=== PATIENT | male | born 1985 | race Caucasian/White ===

== ENCOUNTER 2016-08-24 04:48 | Emergency (ER) ==
[2016-08-24 05:00] VITALS: BP 138/93
--- NOTE | 2016-08-24 05:10 | PROVIDER DOCUMENTATION ---
HPI-Respiratory General - General Chief Complaint: Cold Symptoms Stated Complaint: COLD SX Time Seen by Provider: 08/24/16 05:06 Source: family Allergies/Adverse Reactions: Patient Allergies Allergy/AdvReac Type Severity Reaction Status Date / Time No Known Allergies Allergy Verified 06/16/16 08:17 Home Medications: Home Medication List Medication Instructions Recorded Confirmed Last Taken Type Buprenorphine HCl/Naloxone HCl 1 each SL BID 05/31/15 06/16/16 06/12/16 History [Suboxone 8 mg/2 mg Sl Film] Quetiapine Fumarate [Seroquel] 300 mg PO QHS 08/26/15 06/16/16 06/12/16 History Fluoxetine HCl [Prozac] 200 mg PO DAILY 10/20/15 06/16/16 06/12/16 History Azithromycin [Zithromax Z-Kayden] 250 mg PO DIRECTED #1 pkg 08/24/16 Unknown Rx Prednisone 20 mg PO BID #10 tablet 08/24/16 Unknown Rx Quetiapine Fumarate [Seroquel] 100 mg PO DAILY #6 tablet 08/24/16 Unknown Rx - History of Present Illness-Resp Quality of Pain: reports: aching Severity in ED: reports: mild Onset/Duration: reports: just prior to arrival Timing: reports: still present Context: reports: recent URI Exposure: reports: enviromental allergen exposure Cough Quality/Degree: reports: no cough Episode Frequency: no prior episodes Current Respiratory Medication Therapy: Initiated see nurses note Modifying Factors: improves with: nothing Associated Symptoms: reports: denies symptoms Similar Symptoms Previously?: Yes Recently seen or treated by another doctor?: Yes Review of Systems - Adult - REVIEW OF SYSTEMS - ADULT Constitutional: reports: no symptoms reported Eyes: reports: no symptoms reported Ears, Nose, Mouth & Throat: reports: no symptoms reported Cardiovascular: reports: no symptoms reported Respiratory: reports: no symptoms reported Gastrointestinal: reports: no symptoms reported Genitourinary: reports: no symptoms reported Musculoskeletal: reports: no symptoms reported Integumentary: reports: no symptoms reported Neurological: reports: no symptoms reported Psychiatric: reports: no symptoms reported Endocrine: reports: no symptoms reported Hematologic/Lymphatic: reports: no symptoms reported Allergic/Immunologic: reports: no symptoms reported All Other Systems: Reviewed and Negative Past History - Adult - PAST MEDICAL HISTORY-ADULT Review of Records: reports: Old Records Reviewed, Nursing Assessment Review, Medications Reviewed, Social history reviewed & non-contributory. Major Childhood Illnesses: reports: denies history Cardiovascular: reports: denies history Respiratory: reports: denies history Gastrointestinal: reports: denies history Obstetrical/Gynecological: reports: denies history Genitourinary: reports: denies history Musculoskeletal: reports: denies history Neurological: reports: denies history Psychiatric: reports: depression, psychiatric problems (drug abuse with psychotic features) Endocrine/Immune: reports: denies history Other Conditions: reports: denies history - PRIOR SURGERIES/PROCEDURES Surgical/Procedure History: reports: none - IMMUNIZATION STATUS Childhood Immunizations: See Nurse Assessment Flu Vaccine: See Nurse Assessment - FAMILY HISTORY Family History: reviewed, not pertinent Physical Exam-General - PHYSICAL EXAM-ADULT Initial Vital Signs Reviewed: Yes - CONSTITUTIONAL General Appearance: appears well - EYES Eyes: pink conjunctivae - HEAD, EARS, NOSE, MOUTH & THROAT HENMT: normocephalic/atraumatic - NECK Neck: non-tender - RESPIRATORY Respiratory: chest non-tender - CARDIOVASCULAR Cardiovascular: normal peripheral pulses - GASTROINTESTINAL (ABDOMEN) Abdominal Exam: normal bowel sounds - LYMPHATIC Lymphatic: no adenopathy - MUSCULOSKELETAL Back Exam: normal inspection Extremity: normal range of motion - SKIN Integumentary: normal turgor - NEUROLOGIC 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
== END 2016-08-24 05:16 | disposition home or self-care (01) ==
LOC: P.ED 04:48
DX: J06.9 Acute upper respiratory infection, unspecified (principal); H92.09 Otalgia, unspecified ear; F32.9 Major depressive disorder, single episode, unspecified; Z79.899 Other long term (current) drug therapy
CPT/HCPCS: 99282

== ENCOUNTER 2019-02-28 09:59 | Inpatient (IN) ==
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
[2019-02-28 10:57] LABS: BASO# 0.03 X1000 (0.0-0.2); BASO% 0.2 % (0.0-0.8); HEMATOCRIT 43.3 % (42.0-52.0); HEMOGLOBIN 15.7 g/dL (14.0-18.0); IMM GRAN# 0.03 X1000 (0.0-0.04); IMM GRAN% 0.2 % (0.0-0.5); LYMPH# 1.42 X1000 (1.2-3.4); LYMPH% 7.9 % (20.5-51.1); MCH 30.1 PG (27-31); MCHC 36.3 g/dL (33-37); MONO# 1.79 X1000 (0.11-0.59); MONO% 9.9 % (1.7-9.3); NEUT# 14.78 X1000 (1.4-6.5); NEUT% 81.8 % (42.2-75.2); PLT 218 X1000 (130-400); RBC 5.22 XMIL (4.7-6.1); RDW 12.5 % (11.5-14.5); WBC 18.05 X1000 (4.8-10.8)
[2019-02-28 11:13] LABS: AGAP 19; ALBUMIN 4.5 g/dL (3.5-5.0); ALKALINE PHOSPHATASE 95 U/L (32-122); BUN 14 mg/dL (8-22); CALCIUM 8.7 mg/dL (8.8-10.2); CHLORIDE 98 mmol/L (98-107); COSMO 275; ESTIMATED GFR > 60; GLUCOSE 83 mg/dL (70-104); GOT 52 U/L (10-34); GPT 29 U/L (10-44); POTASSIUM 3.2 mmol/L (3.5-5.1); SODIUM 138 mmol/L (136-145); TCO2 22 mmol/L (25-35); TOTAL PROTEIN 7.5 g/dL (6.3-8.3)
[2019-02-28 11:29] LABS: CK PROFILE 1666 U/L (24-204)
[2019-02-28] MEDS ORDERED: NS 1,000 ML IV ONE (11:35)
[2019-02-28 11:47] LABS: CK INDEX 0.6 (0.0-2.5); CK-MB 9.18 ng/mL (0.0-5.0)
--- NOTE | 2019-02-28 11:55 | Diag Imaging Result Doc PS360 ---
EXAM: FOOT COMPLETE RIGHT 02/28/2019 HISTORY: injury from fall of 15 ft TECHNIQUE: Right foot three views COMMENT: There is a fracture of the base of the first metatarsal which passes through the articular surface. This is somewhat comminuted. There is also a nondisplaced fracture of the neck of the second metatarsal. IMPRESSION: Fracture of the base of the first metatarsal and the neck of the second metatarsal. Electronically signed by Lalo Mccall 02/28/2019 11:53 AM
--- NOTE | 2019-02-28 11:56 | Diag Imaging Result Doc PS360 ---
EXAM: FOOT COMPLETE LEFT 02/28/2019 HISTORY: injury from fall of 15 ft TECHNIQUE: Three views COMMENT: There is a fracture of the medial portion of the tarsal navicular. There is no evidence of dislocation. IMPRESSION: Fracture of the navicular. Electronically signed by Lalo Mccall 02/28/2019 11:54 AM
[2019-02-28 12:30] LABS: BILIRUBIN URINE NEGATIVE (NEGATIVE); BLOOD URINE TRACE (NEGATIVE); CLARITY CLEAR (CLEAR); COLOR YELLOW; GLUCOSE URINE NEGATIVE (NEGATIVE); KETONE URINE 2+(Moderate) mg/dL (NEGATIVE); LEUKOCYTES URINE NEGATIVE (NEGATIVE); NITRITE URINE NEGATIVE (NEGATIVE); PROTEIN URINE NEGATIVE (NEGATIVE); SP GRAVITY URINE 1.015; UROBILINOGEN URINE NORMAL
[2019-02-28 12:35] LABS: URINE SOURCE CLEAN CATCH
[2019-02-28 12:36] LABS: UR AMPHETAMINES QUAL PRESUMPTIVE POSITIVE (NONE DETECT); UR BARBITUATES QUAL NONE DETECTED (NONE DETECT); UR BENZODIAZEPIN QUAL NONE DETECTED (NONE DETECT); UR CANNABINOIDS QUAL PRESUMPTIVE POSITIVE (NONE DETECT); UR COCAINE QUAL NONE DETECTED (NONE DETECT); UR METHADONE QUAL NONE DETECTED (NONE DETECT); UR METHAMPHETAMINE QUAL PRESUMPTIVE POSITIVE (NONE DETECT); UR OPIATES QUAL NONE DETECTED (NONE DETECT); UR OXYCODONE QUAL NONE DETECTED (NONE DETECT); UR PCP QUAL NONE DETECTED (NONE DETECT); UR PROPOXYPHENE QUAL NONE DETECTED (NONE DETECT); UR TCA QUAL NONE DETECTED (NONE DETECT); URINE BACTERIA 1+ /HFP; URINE CAST NONE SEEN /LPF; URINE CRYSTAL NONE SEEN /HPF; URINE EPITHELIAL CELLS >10 /HPF (<10); URINE RBC <10 /HPF (<10); URINE WBC <10 /HPF (<10); URINE YEAST NONE SEEN /HPF
--- NOTE | 2019-02-28 13:17 | EKG Report ---
Test Performed on : 02/28/2019 10:50:27 AM Test Reason : PSYCH Blood Pressure : / mmHG Vent. Rate : 089 BPM Atrial Rate : 089 BPM P-R Int : 154 ms QRS Dur : 076 ms QT Int : 392 ms P-R-T Axes : -05 065 032 degrees QTc Int : 476 ms Normal sinus rhythm. Normal ECG When compared with ECG of 16-JUN-2016 14:33, No significant change was found Unconfirmed Result
[2019-02-28] MEDS ORDERED: ZOFRAN IV PRN (14:30)
[2019-02-28] MEDS ORDERED: ATIVAN IV PRN (14:34)
[2019-02-28] MEDS ORDERED: NS 1,000 ML IV SCH (14:45)
[2019-02-28] MEDS ORDERED: SODIUM CHLORIDE 0.9% INJ SCH (15:00)
[2019-02-28] MEDS ORDERED: NS 1,000 ML ONE (17:23)
--- NOTE | 2019-02-28 17:34 | Diag Imaging Result Doc PS360 ---
EXAM: CT EXT LOWER RIGHT W/O CON 02/28/2019 HISTORY: ft fracture TECHNIQUE: CT of the right foot COMMENT: There is a comminuted fracture of the base of the first metatarsal. There is a nondisplaced fracture of the neck of the second metatarsal. The first metatarsal fracture involves the articular surface and there are multiple small fragments. IMPRESSION: Fractures of the first and second metatarsals as described. Electronically signed by Lalo Mccall 02/28/2019 5:31 PM
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
[2019-02-28] MEDS: NORCO-5 PO PRN (18:06)
--- NOTE | 2019-02-28 18:26 | HISTORY AND PHYSICAL ---
ADDENDUM: Patient seen and examined by myself. Full note dictated and discussed with nurse practitioner. Patient is quite paranoid currently. States that he spent the night on the roof of a secured 5 million dollar home because someone was out to kill him. Notes that he had waited as long as he could until the police could arrive, and therefore he had to jump off the building. Unfortunately, during this leap of nguyen, he fractured the 1st and 2nd metatarsal on the right foot, and the medial tarsal navicular on the left. We are going to admit him to the hospital, place him in boots bilaterally, and we will treat accordingly. He is noted to have rhabdomyolysis as well. We will place him on IV fluids and continue to follow this level. cc: Brandon Nichols MD
[2019-02-28] MEDS: PROTONIX IV SCH (20:48)
[2019-02-28] MEDS: MOTRIN PO PRN (20:48)
[2019-02-28] MEDS: SEROQUEL PO SCH (20:48)
[2019-03-01 06:43] LABS: BASO# 0.03 X1000 (0.0-0.2); BASO% 0.3 % (0.0-0.8); EOS# 0.14 X1000 (0.0-0.7); EOS% 1.2 % (0.0-10.0); HEMATOCRIT 41.7 % (42.0-52.0); HEMOGLOBIN 14.4 g/dL (14.0-18.0); IMM GRAN# 0.01 X1000 (0.0-0.04); IMM GRAN% 0.1 % (0.0-0.5); LYMPH# 1.76 X1000 (1.2-3.4); LYMPH% 15.6 % (20.5-51.1); MCH 29.4 PG (27-31); MCHC 34.5 g/dL (33-37); MCV 85.3 FL (81-99); MONO# 1.36 X1000 (0.11-0.59); MPV 12.3 FL (7.4-10.4); NEUT# 8.01 X1000 (1.4-6.5); NEUT% 70.8 % (42.2-75.2); PLT 189 X1000 (130-400); RBC 4.89 XMIL (4.7-6.1); RDW 12.8 % (11.5-14.5); WBC 11.31 X1000 (4.8-10.8)
[2019-03-01 07:13] LABS: AGAP 15; ALBUMIN 3.9 g/dL (3.5-5.0); ALKALINE PHOSPHATASE 86 U/L (32-122); BUN 10 mg/dL (8-22); CALCIUM 8.3 mg/dL (8.8-10.2); CHLORIDE 105 mmol/L (98-107); COSMO 283; CREATININE 0.7 mg/dL (0.7-1.2); ESTIMATED GFR > 60; GLUCOSE 84 mg/dL (70-104); GOT 36 U/L (10-34); GPT 24 U/L (10-44); SODIUM 143 mmol/L (136-145); TCO2 23 mmol/L (25-35); TOTAL PROTEIN 6.1 g/dL (6.3-8.3)
[2019-03-01 07:40] LABS: CK INDEX 0.4 (0.0-2.5); CK-MB 3.92 ng/mL (0.0-5.0)
[2019-03-01] MEDS ORDERED: KLOR-CON PO ONE ×2 (09:49→09:54)
[2019-03-01] MEDS: NORCO-5 PO PRN ×2 (11:28→15:26)
[2019-03-01] MEDS: NICODERM PATCH TD SCH (13:31)
[2019-03-01] MEDS: THERA M PLUS PO SCH (13:31)
--- NOTE | 2019-03-01 14:24 | PROGRESS NOTE ---
DATE: 03/01/2019 SUBJECTIVE: The patient has a variety of complaints, initially stating that pain medication helped and states pain is not enough for his bilateral foot pain due to fractures. He notes that if he is discharged that people who are looking for him to kill him will be able to find him. States that he is not crazy, that this is the federal case. PHYSICAL EXAMINATION: Vitals: Temperature 98, pulse 91, respiratory rate 18, BP 125/80. General: Patient is awake, alert. He goes from calm to agitated and irrational quite frequently. HEENT: Normocephalic. Neck: Supple. Cardiovascular: Regular rate. Chest: Clear. Abdomen: Soft. ASSESSMENT: 1. Bilateral foot fractures, currently splinted on both. He is to follow up outpatient with surgeon of choice as he may require surgical intervention in the future. Will likely require wheelchair to stay off of his feet as much as possible. 2. Delusional behavior. The patient seems to be exhibiting symptoms of paranoid schizophrenia. We attempted to consult [facility]. He became emotional, irate, refused to talk to them. He was attempting to throw the computer until it was removed from his room. PLAN: We will continue patient in the hospital until discharge arrangements can be made. cc: Brandon Nichols MD MTDD
[2019-03-01] MEDS: PROTONIX IV SCH (15:23)
[2019-03-01] MEDS: MOTRIN PO PRN (18:52)
[2019-03-01] MEDS: SEROQUEL PO SCH (21:19)
[2019-03-02] MEDS: NICODERM PATCH TD SCH ×2 (09:03→09:13)
[2019-03-02] MEDS: MOTRIN PO PRN (09:03)
[2019-03-02] MEDS: THERA M PLUS PO SCH (09:03)
[2019-03-02] MEDS: NORCO-5 PO PRN ×2 (15:18→23:16)
--- NOTE | 2019-03-02 19:14 | PROGRESS NOTE ---
DATE: 03/02/2019 SUBJECTIVE: Patient has no new complaints. States that he cannot leave the hospital because the feds are after him and they will kill him if they find him. States that the hospital is a refuge for him because the feds cannot come here. PHYSICAL: Vital Signs: Reviewed, temperature 97 degrees, pulse 105, respiratory 18, BP 125/71. General: Patient is awake, currently he is in no respiratory distress. HEENT: Normocephalic. Neck: Supple. CV: Regular rate. Chest: Clear. Abdomen: Soft. ASSESSMENT: 1. Bilateral foot fractures currently bandaged. 2. Rhabdomyolysis. 3. Substance abuse. 4. Schizophrenia. PLAN: Will continue patient in the hospital. Unfortunately he is required to be nonweightbearing on his feet currently. We are attempting to find arrangements for discharge planning. cc: Brandon Nichols MD
[2019-03-02] MEDS: SEROQUEL PO SCH (23:16)
[2019-03-02] MEDS: PROTONIX PO SCH (23:17)
[2019-03-03] MEDS: NORCO-5 PO PRN ×3 (05:53→17:25)
[2019-03-03] MEDS: THERA M PLUS PO SCH (08:28)
[2019-03-03] MEDS: NICODERM PATCH TD SCH (08:28)
[2019-03-03] MEDS ORDERED: HALDOL DECANOATE IM SCH (09:00)
--- NOTE | 2019-03-03 09:29 | DISCHARGE SUMMARY ---
ADMISSION DATE: 02/28/2019 DISCHARGE DATE: PENDING ADMISSION DIAGNOSES: 1. Bilateral foot fractures. 2. Rhabdomyolysis. 3. Substance abuse with drug screen positive for methamphetamines, amphetamines and cannabinoids. 4. History of schizoaffective bipolar type. 5. History of anger issues. DISCHARGE DIAGNOSES: 1. Bilateral foot fracture, both feet splinted. Will have to do wheelchair until these are healed will need to follow up with outpatient surgeon of choice. 2. Delusional behavior. Exhibiting symptoms of paranoid schizophrenia. CONSULTATIONS: 1. Case management. 2. Dr. Prieto with orthopedic surgery. 3. Psychiatric consult. 4. 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 SURGERIES AND PROCEDURES: None. Both feet have been planted. HOSPITAL COURSE: Mr. Tristan Aldrich is a 34-year-old male who is admitted to the hospital after having a 15 foot fall from a roof. X-ray revealed fractures to the left and right foot. While he was in the hospital he has shown signs and symptoms of delusional behavior, very emotional and irate. Apparently the patient was attempting to even through the computer in the room. I believe he is going to have to go home. He will be on will wheelchair bound and to follow up with orthopedic surgery in the future for any possible surgical intervention. Orthopedic surgeon. Recommendation and will likely need surgery on his right foot for fixation of his 1st metatarsal base fracture. There is also concern for possible Lisfranc disruption and will see him as an outpatient for surgical repair in the future. There was a lower extremity CAT scan was performed which also showed fractures of the 1st and 2nd metatarsals on the right foot. DISCHARGE VITAL SIGNS: Temperature 97.5 degrees, heart rate 100, respiratory rate 20, blood pressure 141/100, O2 saturation 99% on room air. DISCHARGE LAB DATA: White blood cells 11,000, hemoglobin 14, hematocrit 41, platelet count 189,000. Sodium 143, potassium 3, BUN 10, creatinine 0.7, glucose 84. PERTINENT IMAGING: On admit: Foot x-ray of the right foot three-view: Fracture of the base of the 1st metatarsal neck of the 2nd metatarsal. Left foot imaging fracture of the navicular. Right lower extremity CT shows fractures of the 1st and 2nd metatarsals. EKG normal sinus rhythm, rate 89, QTc is 476. DISCHARGE ACTIVITY: 1. Physical therapy. Will have to be in a wheelchair to not weightbear on his lower feet. 2. No driving while taking pain medications. DISCHARGE DIET: Regular. DISCHARGE MEDICATIONS: [place] 5 one tablet p.o. every 4 hours p.r.n. and here he has been on p.r.n. Motrin, p.r.n. Ativan but never given that, a multivitamin a nicotine patch. He was getting scheduled Seroquel at night 100 mg nightly. DISCHARGE INSTRUCTIONS: 1. Follow up with orthopedic surgeon for future surgery on the right foot. 2. Do not weight bear on the feet, use a wheelchair. 3. If your condition changes, contact physician and/or return to the emergency department. Changes may include, but are not limited to, shortness of breath, increased fatigue, excessive bleeding, unexplained weight loss or gain, unmanageable pain signs or symptoms of infection. PHYSICIAN FOLLOWUP: Dr. Yony Prieto. DISCHARGE DISPOSITION: Should be home. Dictated by MARTHA Galvan for Brandon Nichols MD cc: MARTHA Galvan MD [facility]
[2019-03-03] MEDS: SEROQUEL PO SCH (20:59)
[2019-03-03] MEDS: PROTONIX PO SCH (20:59)
--- NOTE | 2019-03-04 04:05 | PROGRESS NOTE ---
DATE: 03/03/2019 SUBJECTIVE: Patient this morning has been very agitated. He refused all his medications. Because of the agitation we decided to provide an antipsychotic medication and he adamantly refused it. We needed to call the police actually to keep him calmed down. OBJECTIVE: Vitals: Temperature 97.8, heart rate 98, respiratory rate 22, blood pressure 151/100. O2 saturation 100% on room air. General: This is a 34-year-old, male, lying in bed, in no acute distress. Cardiovascular: S1, S2 heard. No murmurs, gallops, or rubs. Regular rate and rhythm. Respiratory: Clear bilaterally to auscultation. No work of breathing or use of accessory muscles. Abdomen: Soft, nontender to palpation. Bowel sounds present. No organomegaly. Extremities: Both feet are splinted. Neurological: Patient alert and oriented x3. Moves 4 extremities. LABORATORY DATA: None. ASSESSMENT AND PLAN: 1. Bilateral foot fracture. That is reason why this patient was admitted to the hospital because he jumped from 15 feet. The patient has been discharged from orthopedic standpoint. He will need to be seen by Dr. Prieto and use a wheelchair until those bilateral feet fractures heal. 2. History of schizoaffective type disorder. The patient has been very combative and violent to our staff. We needed to call the police. At this point we are asking if we can get a bed for in [facility]. We have consulted [facility]. Patient is supposed to be kept in the hospital until we have a placement. The patient wants to go home. cc: Roderick Rodriguez MD MTDD
[2019-03-04] MEDS: NORCO-5 PO PRN ×2 (05:13→10:47)
[2019-03-04 06:25] VITALS: BP 137/96
[2019-03-04] MEDS: THERA M PLUS PO SCH (08:13)
[2019-03-04] MEDS: NICODERM PATCH TD SCH (08:13)
--- NOTE | 2019-03-04 17:38 | DISCHARGE SUMMARY ---
ADMISSION DATE: 02/28/2019 DISCHARGE DATE: 03/04/2019 DISCHARGE DIAGNOSES: 1. Bilateral foot fracture both feet. 2. Delusional behavior. ADDENDUM: Please refer to discharge summary dictated on 03/02/2019 for further details. The patient has been admitted to the hospital for bilateral foot fracture treatment as we mentioned in our previous note. The patient was discharged on March 02. The patient become very agitated and violent to our staff so we told that we need to place this patient on psych facility but unfortunately we consulted social at [facility] who refused to take this patient when he was obviously exhibiting symptoms of paranoid schizophrenia. He has been seen there before. Today has been more calmed down. He refused any psych medication, stating that he was feeling much better. The last 24 hours he has been okay, not causing any major trouble to our staff so at this point, the patient is going to get a wheelchair because he is not weightbearing for both lower extremities because of fracture. The patient is going to be discharged in stable condition. No changes to his pain medications. He needs to be seen by Orthopedics as we already scheduled. cc: Roderick Rodriguez MD MTDD
== END 2019-03-04 12:28 | disposition home or self-care (01) | DRG 563 ==
LOC: EDBD → P.ED 09:59 → P.MEDSURG 16:03 → SUATTDRO 16:03 → P.MEDSURG 16:52
PROVIDERS: ATTEND Internal Medicine